=== PATIENT | male | born 1975 | race African-American/Black ===

== ENCOUNTER 2022-05-05 21:37 | Emergency (ER) | payer MEDICAID ==
[~2022-05-05] VITALS: Ht 170.2 cm; Wt 74.8 kg
[2022-05-05 21:37] VITALS: BP 137/81
[2022-05-06] MEDS ORDERED: CEPH-509 PO (00:23)
== END 2022-05-06 01:59 | disposition home or self-care (01) ==
LOC: ER 21:37
DX: I89.1 Lymphangitis (principal)